=== PATIENT | female | born 1990 | race Caucasian/White ===

== ENCOUNTER 2017-07-21 05:12 | Emergency (ER) | payer OTHER ==
--- NOTE | 2017-07-21 05:18 | ED Physician Documentation ---
PD HPI ABD PAIN - Stated complaint Stated Complaint: RT FLANK PAIN - History obtained from History obtained from: Patient - History of Present Illness Timing - onset: How many days ago (3) Timing - details: Abrupt onset, Intermittant, Waxing and waning Pain level max: 10 Pain level now: 10 Quality: Pain Location: RUQ Radiation: Right flank Improved by: No: Eating, Laying still, Vomiting, BM, Position, Meds Worsened by: No: Eating, Moving, Breathing, Position, Palpation Associated symptoms: Nausea, Vomiting. 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 - Present Medications Home Medications: Ambulatory Orders Medication Instructions Recorded Confirmed Venlafaxine HCl [Effexor Xr] 150 mg PO DAILY 05/20/14 07/21/17 Bcp 07/21/17 Ondansetron Odt [Zofran] 4 mg TL Q6H PRN #14 tablet 07/21/17 Tamsulosin [Flomax] 0.4 mg PO DAILY #6 capsule 07/21/17 oxyCODONE/ACET 5/325 [Percocet 5 1 - 2 each PO Q6H PRN #16 tablet 07/21/17 mg/325 mg] - Allergies Allergies/Adverse Reactions: Allergies Allergy/AdvReac Type Severity Reaction Status Date / Time No Known Drug Allergies Allergy Verified 07/21/17 05:20 - Social History Does the pt smoke?: Yes Smoking Status: Current every day smoker Does the pt drink ETOH?: No Does the pt have substance abuse?: No - Immunizations Immunizations are current?: Yes - POLST Patient has POLST: No PD ED PE NORMAL - Vitals Vital signs reviewed: Yes - General General: Alert and oriented X 3, Well developed/nourished, Other (obvious painful distress) - Cardiac Cardiac: RRR, No murmur - Respiratory Respiratory: No respiratory distress, Clear bilaterally - Abdomen Abdomen: Soft, Non tender - Back Back: No CVA TTP - Derm Derm: Normal color, Warm and dry Results - Vitals Vitals: Oxygen O2 Source Room air - Labs Labs: Laboratory Tests 07/21/17 07/21/17 07/21/17 05:18 05:23 05:23 WBC 17.8 H RBC 4.45 Hgb 12.4 Hct 38.5 MCV 86.5 MCH 27.9 MCHC 32.3 RDW 12.7 Plt Count 284 MPV 9.6 Neut # 11.8 H Lymph # 4.5 H [place] # 1.1 H Eos # 0.1 Baso # 0.2 H Absolute Nucleated RBC 0.00 Nucleated RBCs 0.0 Sodium 139 Potassium 3.6 Chloride 107 Carbon Dioxide 24 Anion Gap 8.0 BUN 10 Creatinine 0.7 Estimated GFR (MDRD) 100 Glucose 114 H Calcium 8.6 Total Bilirubin 0.5 AST 19 ALT 25 Alkaline Phosphatase 51 Total Protein 7.1 Albumin 3.8 Globulin 3.3 Albumin/Globulin Ratio 1.2 Lipase 33 Urine Color LT RED Urine Clarity HAZY Urine pH 7.5 Ur Specific [place] 1.020 Urine Protein TRACE Urine Glucose (UA) NEGATIVE Urine Ketones NEGATIVE Urine Occult Blood LARGE H Urine Nitrite NEGATIVE Urine Bilirubin NEGATIVE Urine Urobilinogen 0.2 (NORMAL) Ur Leukocyte Esterase NEGATIVE Urine RBC TNTC H Urine WBC 0-3 Ur Squamous Epith Cells NONE SEEN Urine Bacteria None Seen Ur Microscopic Review INDICATED Urine Culture Comments NOT INDICATED Urine HCG, Qual NEGATIVE - Rads (name of study) CT A/P Radiology: Prelim report reviewed, See rad report PD MEDICAL DECISION MAKING - ED course Complexity details: reviewed results, re-evaluated patient, considered differential, d/w patient Departure - Departure Disposition: 01 Home, Self Care Clinical Impression: Renal colic Condition: Good Instructions: ED Stone Renal W Colic Follow-Up: Bo Guido DO [Primary Care Provider] - Prescriptions: Tamsulosin [Flomax] 0.4 mg PO DAILY #6 capsule oxyCODONE/ACET 5/325 [Percocet 5 mg/325 mg] 1 - 2 each PO Q6H PRN #16 tablet PRN Reason: Pain Ondansetron Odt [Zofran] 4 mg TL Q6H PRN #14 tablet PRN Reason: Nausea / Vomiting Forms: Activity restrictions Discharge Date/Time: 07/21/17 07:33
[2017-07-21] MEDS ORDERED: ONDANSETRON 4 MG/2 ML VIAL IVP STA ×2 (05:25→07:07)
[2017-07-21] MEDS ORDERED: SODIUM CHLORIDE 0.9% 1,000 ML IV STA (05:25)
[2017-07-21] MEDS ORDERED: ONDANSETRON 4 MG/2 ML VIAL ONE ×2 (05:29→07:17)
[2017-07-21] MEDS ORDERED: KETOROLAC 60 MG/2 ML VIAL IVP STA (05:35)
[2017-07-21] MEDS ORDERED: HYDROmorphone 1 MG/ML SYRINGE IVP STA ×2 (05:35→07:07)
[2017-07-21] MEDS ORDERED: HYDROmorphone 1 MG/ML SYRINGE ONE ×2 (05:37→07:16)
[2017-07-21] MEDS ORDERED: KETOROLAC 30 MG/ML VIAL ONE (05:37)
[2017-07-21 05:42] LABS: BASOPHILS # (AUTO) 0.2 10^3/uL (0.0-0.1); BASOPHILS % (AUTO) 0.9 %; EOSINOPHILS # (AUTO) 0.1 10^3/uL (0.0-0.7); EOSINOPHILS % (AUTO) 0.8 %; HCT - HEMATOCRIT 38.5 % (37.0-47.0); HGB - HEMOGLOBIN 12.4 g/dL (12.0-16.0); LYMPHOCYTES # (AUTO) 4.5 10^3/uL (1.5-3.5); LYMPHOCYTES % (AUTO) 25.2 %; MEAN CORPUSCULAR HEMOGLOBIN 27.9 pg (27.0-31.0); MEAN CORPUSCULAR HGB CONC 32.3 g/dL (32.0-36.0); MEAN CORPUSCULAR VOLUME 86.5 fL (81.0-99.0); MEAN PLATELET VOLUME 9.6 fL (7.9-10.8); MONOCYTES # (AUTO) 1.1 10^3/uL (0.0-1.0); MONOCYTES % (AUTO) 6.4 %; NEUTROPHILS # (AUTO) 11.8 10^3/uL (1.5-6.6); NEUTROPHILS % (AUTO) 66.7 %; RED BLOOD COUNT 4.45 10^6/uL (4.20-5.40); RED CELL DISTRIBUTION WIDTH 12.7 % (12.0-15.0); UNCORRECTED WHITE BLOOD COUNT 17.8 x10^3/uL; WHITE BLOOD COUNT 17.8 x10^3/uL (4.8-10.8)
[2017-07-21 05:50] LABS: ALBUMIN/GLOBULIN RATIO 1.2 (1.0-2.2); BILIRUBIN,TOTAL 0.5 mg/dL (0.2-1.0); CALCIUM 8.6 mg/dL (8.5-10.3); CREATININE 0.7 mg/dL (0.4-1.0); POTASSIUM 3.6 mmol/L (3.5-5.0); TOTAL PROTEIN 7.1 g/dL (6.7-8.2)
[2017-07-21 06:18] LABS: BILIRUBIN,URINE NEGATIVE (NEGATIVE); HCG UR QUAL NEGATIVE; PH,URINE 7.5 PH (5.0-7.5); UA w/ MICROSCOPIC CHARGE YES
[2017-07-21 06:28] LABS: UR CULTURE IF IND NOT INDICATED; WBC,URINE 0-3 /HPF (0-5)
--- NOTE | 2017-07-21 06:56 | CT Preliminary Report ---
Exam: CT Abdomen/Pelvis W/O IMPRESSION: 1. Moderately obstructing 4 x 3 mm distal right ureteral stone. Scattered small nonobstructing right renal stones. 2. Previous cholecystectomy. [facility] SITE ID: [id number]
--- NOTE | 2017-07-21 06:58 | CT Report ---
EXAM: CT ABDOMEN AND PELVIS (CT KUB) EXAM DATE: 07/21/2017 06:35 AM. CLINICAL HISTORY: Right flank pain. COMPARISONS: 10/10/2016. TECHNIQUE: Routine axial helical CT imaging was performed through the abdomen and pelvis without IV c ontrast. Reconstructions: Coronal and sagittal. In accordance with CT protocol optimization, one or more of the following dose reduction techniques w ere utilized for this exam: automated exposure control, adjustment of mA and/or KV based on patient s ize, or use of iterative reconstructive technique. FINDINGS: Lung Bases: Unremarkable. Right Kidney/Ureter: Moderately obstructing 4 x 3 mm distal right ureteral stone within a few centime ters of the UVJ. Scattered small nonobstructing stones measuring up to 4 mm. Otherwise grossly unrema rkable. Left Kidney/Ureter: No stones, hydronephrosis, or hydroureter. Other Abdominal Organs: Noncontrast images of the abdominal organs are grossly unremarkable with note of prior cholecystectomy. Peritoneal Cavity: No free fluid, free air or lopez adenopathy. No excessive stool burden. Bowel is g rossly unremarkable. Pelvic Organs: No bladder stones or gross wall thickening. Noncontrast images of the visualized pelvi c organs are unremarkable. Vasculature: Unremarkable. Other: None. IMPRESSION: 1. Moderately obstructing 4 x 3 mm distal right ureteral stone. Scattered small nonobstructing right renal stones. 2. Previous cholecystectomy. [facility] Referring Provider Line: [phone] SITE ID: [id number]
[2017-07-21] MEDS ORDERED: TAMSULOSIN 0.4 MG CAPSULE PO STA (07:07)
[2017-07-21] MEDS ORDERED: TAMSULOSIN 0.4 MG CAPSULE ONE (07:16)
[2017-07-21] MEDS ORDERED: SODIUM CHLORIDE FLUSH 0.9% 10 ML SYRINGE IVP ONE (07:17)
[2017-07-21 07:26] VITALS: BP 116/81
== END 2017-07-21 07:33 | disposition home or self-care (01) ==
LOC: ED 05:12
DX: N20.2 Calculus of kidney with calculus of ureter (principal); Z87.442 Personal history of urinary calculi; F17.200 Nicotine dependence, unspecified, uncomplicated
CPT/HCPCS: 36415; 74176; 80053; 81001; 81025; 83690; 85025; 96361; 96374; 96375; 96376; 99284; A9270; J1170; 81003; 87086

== ENCOUNTER 2017-09-10 11:52 | Emergency (ER) | payer OTHER ==
[2017-09-10 12:27] LABS: BILIRUBIN,URINE NEGATIVE (NEGATIVE); PH,URINE 6.5 PH (5.0-7.5)
[2017-09-10 12:29] LABS: HCG UR QUAL NEGATIVE; UA w/ MICROSCOPIC CHARGE YES
[2017-09-10 12:39] LABS: UR CULTURE IF IND NOT INDICATED; WBC,URINE 0-3 /HPF (0-5)
--- NOTE | 2017-09-10 13:49 | ED Physician Documentation ---
PD HPI ABD PAIN - Stated complaint Stated Complaint: FEMALE - Chief complaint Chief Complaint: Abd Pain - History obtained from History obtained from: Patient - History of Present Illness Timing - onset: Today Timing - duration: Hours Timing - details: Abrupt onset, Still present Quality: Aching, Sharp, Pain Location: RLQ Radiation: Right flank Improved by: No: Eating, Laying still, Position Worsened by: No: Eating, Breathing, Position, Palpation Associated symptoms: Nausea. No: Fever, Vomiting, Diarrhea, Dysuria, Hematuria Similar symptoms before: Diagnosis (kidney stones several in the past, most recent just in past couple of months.) Review of Systems Constitutional: denies: Fever, Chills Nose: denies: Rhinorrhea / runny nose, Congestion Throat: denies: Sore throat Respiratory: denies: Cough GI: reports: Nausea. 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 - Present Medications Home Medications: Ambulatory Orders Medication Instructions Recorded Confirmed Venlafaxine HCl [Effexor Xr] 225 mg PO DAILY 05/20/14 09/10/17 Dexamethasone [Decadron] 4 mg PO DAILY #5 tablet 09/10/17 Naproxen 375 mg PO BID #20 tablet 09/10/17 Oxycodone HCl/Acetaminophen 1 each PO Q6H PRN #20 tablet 09/10/17 [Percocet 5-325 mg Tablet] Tamsulosin [Flomax] 0.4 mg PO DAILY #5 capsule 09/10/17 - Allergies Allergies/Adverse Reactions: Allergies Allergy/AdvReac Type Severity Reaction Status Date / Time No Known Drug Allergies Allergy Verified 09/10/17 12:12 - Social History Does the pt smoke?: Yes Smoking Status: Current every day smoker Does the pt drink ETOH?: No Does the pt have substance abuse?: No - Immunizations Immunizations are current?: Yes - POLST Patient has POLST: No PD ED PE NORMAL - Vitals Vital signs reviewed: Yes - General General: Alert and oriented X 3, Well developed/nourished, Other (appears moderately uncomfortable.) - Neck Neck: Supple, no meningeal sign - Cardiac Cardiac: RRR, No murmur - Respiratory Respiratory: Clear bilaterally - Abdomen Abdomen: Normal bowel sounds, Soft, Non tender, Non distended - Female Female : Deferred - Rectal Rectal: Deferred - Back Back: No spinal TTP, Other (some right CVA tenderness to percussion. ) - Derm Derm: Normal color, Warm and dry, No rash - Neuro Neuro: Alert and oriented X 3, No motor deficit, Normal speech Results - Vitals Vitals: Oxygen O2 Source Room air - Labs Labs: Laboratory Tests 09/10/17 12:18 Urine Color YELLOW Urine Clarity HAZY Urine pH 6.5 Ur Specific [place] 1.025 Urine Protein NEGATIVE Urine Glucose (UA) NEGATIVE Urine Ketones NEGATIVE Urine Occult Blood MODERATE H Urine Nitrite NEGATIVE Urine Bilirubin NEGATIVE Urine Urobilinogen 0.2 (NORMAL) Ur Leukocyte Esterase NEGATIVE Urine RBC 11-25 H Urine WBC 0-3 Ur Squamous Epith Cells MOD Squamous H Urine Bacteria Rare Ur Microscopic Review INDICATED Urine Culture Comments NOT INDICATED Urine HCG, Qual NEGATIVE PD MEDICAL DECISION MAKING - ED course Complexity details: reviewed old records, considered differential (pain feeling similar to prior kidney stones. Passed one recently and the CT at the time ( within couple months) showed few stones in kidneys, largest about 4 mm, so she should be passing small enough sized one. Has blood in urine. Will treat presumptively as shared decision with patient. ), d/w patient Departure - Departure Disposition: 01 Home, Self Care Clinical Impression: Acute abdominal pain in right flank Condition: Stable Record reviewed to determine appropriate education?: Yes Instructions: ED Stone Renal W Colic Follow-Up: Bo Guido DO [Primary Care Provider] - Prescriptions: Dexamethasone [Decadron] 4 mg PO DAILY #5 tablet Naproxen 375 mg PO BID #20 tablet Oxycodone HCl/Acetaminophen [Percocet 5-325 mg Tablet] 1 each PO Q6H PRN #20 tablet PRN Reason: Pain Tamsulosin [Flomax] 0.4 mg PO DAILY #5 capsule Comments: Presume your pain to be from passing a kidney stone. Use anti-inflammatories of both naproxen twice daily for the next week and dexamethasone daily for the next few days until the stone passes. Add tamsulosin to help reduce ureteral spasms. For pain add Tylenol or Percocet as needed. Your CT scan from June showed the largest stones in the kidneys to be 4 mm and so presumably this is a passable size. Recheck if still not better over the next 2-3 days and return sooner if worsening. Discharge Date/Time: 09/10/17 15:19
[2017-09-10] MEDS ORDERED: DEXAMETHASONE 10 MG/ML VIAL PO STA (14:04)
[2017-09-10] MEDS ORDERED: ACETAMINOPHEN 325 MG TABLET PO STA (14:04)
[2017-09-10] MEDS ORDERED: ONDANSETRON ODT 4 MG TABLET TL STA (14:04)
[2017-09-10] MEDS ORDERED: KETOROLAC 60 MG/2 ML VIAL IM STA (14:04)
[2017-09-10] MEDS ORDERED: ACETAMINOPHEN 325 MG TABLET PO ONE (14:26)
[2017-09-10] MEDS ORDERED: KETOROLAC 60 MG/2 ML VIAL ONE (14:26)
[2017-09-10] MEDS ORDERED: ONDANSETRON ODT 4 MG TABLET ONE (14:26)
[2017-09-10] MEDS ORDERED: DEXAMETHASONE 10 MG/ML VIAL ONE (14:26)
[2017-09-10] MEDS ORDERED: CHERRY SYRUP 10 ML UDC PO ONE (14:27)
[2017-09-10 15:15] VITALS: BP 144/91
== END 2017-09-10 15:19 | disposition home or self-care (01) ==
LOC: ED 11:52
DX: R10.31 Right lower quadrant pain (principal); R11.0 Nausea; Z87.442 Personal history of urinary calculi; F17.200 Nicotine dependence, unspecified, uncomplicated
CPT/HCPCS: 81001; 81025; 96372; 99283; A9270; Q0162; 81003; 87086

== ENCOUNTER 2018-01-07 16:40 | Emergency (ER) | payer OTHER, MEDICAID ==
[2018-01-07 16:51] VITALS: BP 146/91
[2018-01-07] MEDS ORDERED: CYCLOBENZAPRINE 10 MG TABLET PO STA (18:45)
[2018-01-07] MEDS ORDERED: HYDROcod/ACETAM 5/325 MG TABLET PO STA (18:45)
[2018-01-07] MEDS ORDERED: predniSONE 20 MG TABLET PO STA (18:45)
--- NOTE | 2018-01-07 18:47 | ED Physician Documentation ---
PD HPI BACK PAIN - Stated complaint Stated Complaint: LOW BACK PX - Chief complaint Chief Complaint: Back Pain - History obtained from History obtained from: Patient - History of Present Illness Timing - onset: Other (She has chronic back pain for many years, has been in physical therapy for it. 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 - Present Medications Home Medications: Ambulatory Orders Medication Instructions Recorded Confirmed Venlafaxine HCl [Effexor Xr] 225 mg PO DAILY 05/20/14 01/07/18 Cyclobenzaprine [Flexeril] 10 mg PO TID PRN #20 tablet 01/07/18 Norgestimate-Ethinyl Estradiol 1 each PO DAILY 01/07/18 01/07/18 [Ortho Tri-Cyclen 28 Tablet] Oxycodone HCl/Acetaminophen 1 - 2 tab PO Q4H PRN #15 tablet 01/07/18 [Percocet 5-325 mg Tablet] predniSONE [Deltasone] 20 mg PO [id number] #21 tab 01/07/18 - Allergies Allergies/Adverse Reactions: Allergies Allergy/AdvReac Type Severity Reaction Status Date / Time No Known Drug Allergies Allergy Verified 01/07/18 16:51 - Social History Does the pt smoke?: Yes Smoking Status: Current every day smoker Does the pt drink ETOH?: No Does the pt have substance abuse?: No - Immunizations Immunizations are current?: Yes - POLST Patient has POLST: No PD ED PE NORMAL - Vitals Vital signs reviewed: Yes - General General: Alert and oriented X 3, No acute distress - Abdomen Abdomen: Soft, Non tender - Back Back: Other (Tender in the left SI notch, patellar and Babinski reflexes are equal and she has symmetric sensation throughout the legs, she is weak in flexion and extension of the left foot but that seems limited due to pain as opposed to a primary neurologic issue.) - Neuro Neuro: Alert and oriented X 3, Normal speech Results - Vitals Vitals: Vital Signs - 24 hr 01/07/18 16:48 Temperature 36.6 C Heart Rate 105 H Respiratory 16 Rate Blood Pressure 146/91 H O2 Saturation 100 Oxygen O2 Source Room air PD MEDICAL DECISION MAKING - ED course ED course: This patient has seemingly uncomplicated musculoskeletal back pain. The patient has no "red flags." Specifically denies IV drug use, fevers, incontinence, saddle anesthesia. Spinal epidural abscess was considered, given that the patient has no fever, is not diabetic, has no spinal tenderness, does not use IV drugs, and has no bilateral neurologic symptoms, the diagnosis of spinal epidural abscess is considered exceedingly unlikely. Departure - Departure Disposition: 01 Home, Self Care Clinical Impression: Sciatica Condition: Good Record reviewed to determine appropriate education?: Yes Instructions: ED Low Back Pain Injury Prescriptions: Cyclobenzaprine [Flexeril] 10 mg PO TID PRN #20 tablet PRN Reason: Pain Oxycodone HCl/Acetaminophen [Percocet 5-325 mg Tablet] 1 - 2 tab PO Q4H PRN #15 tablet PRN Reason: Pain predniSONE [Deltasone] 20 mg PO [id number] #21 tab Comments: Call your doctor to arrange a follow-up appointment, make the next available appointment. In the interim, return anytime if worse or if new symptoms develop. Your blood pressure was elevated today on check into the emergency department. This does not mean that you have hypertension, it is a common phenomenon to come to the emergency department and have elevated blood pressure. I recommend that you see your primary care physician within the week to have it rechecked when you are feeling better. Do not drink or drive while taking narcotic pain medication. Note that many narcotic pain relievers also contain Tylenol/acetaminophen. Please ensure that your total dose of acetaminophen from all sources does not exceed 3 g (3000 mg) per day. You may get constipated while on this medication. Take a stool softener such as Colace twice a day while you are on it. Also add an [id number] laxative such as senna or MiraLAX on any day that you do not have a bowel movement. If you received a narcotic pain medication or sedative while in the emergency department, do not drive for the next 24 hours.
[2018-01-07] MEDS ORDERED: oxyCOD/ACETAMIN 5 MG/325 MG TABLET PO STA (18:48)
== END 2018-01-07 18:53 | disposition home or self-care (01) ==
LOC: ED 16:40
DX: M54.32 Sciatica, left side (principal); R03.0 Elevated blood-pressure reading, without diagnosis of hypertension; G89.29 Other chronic pain
CPT/HCPCS: 99283; A9270; J7512

== ENCOUNTER 2018-06-29 07:42 | Outpatient (CLI) | payer OTHER, MEDICAID ==
--- NOTE | 2018-06-29 14:29 | MRI Report ---
Procedure Date: 06/29/2018 Accession Number: [id number] / [id number] Procedure: MRI - Pelvis W/O CPT Code: FULL RESULT: EXAM: MR PELVIS WITH AND WITHOUT CONTRAST (MR FEMALE PELVIS) EXAM DATE: 06/29/2018 09:13 AM. CLINICAL HISTORY: LEIOMYOMA OF UTERUS,UNSPECIFIED. COMPARISON: ABDOMEN/PELVIS W/O 07/21/2017 6:28 AM. TECHNIQUE: Multiplanar breath-hold T1, T2 obtained through the pelvis on an MR scanner. Images obtained without administration of intravenous contrast. FINDINGS: Reproductive Organs: Uterus: The uterus is anteverted and measures 8.9 x 3.7 x 4.2 cm with volume 72 cc. The endometrial stripe measures 4 mm. There are no uterine masses. Right Ovary: The right ovary measures 3.1 x 1.8 x 2.6 cm with volume 7.6 cc. The right ovary appears normal. Left Ovary: The left ovary measures 2.4 x 1.9 by at least 2.5 cm. (The most superior portion of left ovary was obscured by saturation band.) The left ovary appears normal. Bowel: The visualized portions of the small bowel, colon, and rectum appear normal. Bladder: The urinary bladder appears normal. Other: None. IMPRESSION: 1. Normal MR of the pelvis. 2. No evidence for fibroid. If prior outside pelvic ultrasound images and report become available, comparison may be made. [facility]
== END 2018-06-29 07:43 | disposition home or self-care (01) ==
LOC: DI 07:42
DX: D25.9 Leiomyoma of uterus, unspecified (principal)
CPT/HCPCS: 72195